=== PATIENT | male | born 1985 | race Two or more races ===

== ENCOUNTER 2024-06-20 13:15 | Emergency (ER) | payer MEDICAID, SELFPAY ==
--- NOTE | 2024-06-20 13:46 | PC.NURSE ---
patient refused medical care. provider and charge nurse aware, pt released to police custody
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
== END 2024-06-20 13:48 | disposition home or self-care (01) ==
PROVIDERS: Emergency Provider Emergency Medicine
DX: Z02.89 Encounter for other administrative examinations (principal)
CPT/HCPCS: 99281

== ENCOUNTER 2024-07-05 19:44 | Emergency (ER) | payer MEDICAID, SELFPAY ==
[2024-07-05 19:52] VITALS: BMI 25.8
[2024-07-05] MEDS: KETAMINE 50 MG/ML VIAL 10 ML 400 MG IM (19:55)
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
[2024-07-05 20:20] LABS: Base Excess -6 (-3-3); HCO3 20 mEq/L (20-26); Inspired O2, VO2 Liters 4 L/min; O2 Saturation 99 % (91-98); PCO2 38 mmHg (32.0-48.0); PO2 124 mmHg (83-108); pH, Arterial 7.32 (7.35-7.45)
[2024-07-05 20:22] VITALS: BP 161/99; PULSE 131; RESP 16; TEMP 36.9; O2SAT 98
[2024-07-05 20:23] LABS: Allen Test Not Performed; Puncture Site Site Not Noted
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
--- NOTE | 2024-07-05 20:31 | XR_ITS ---
Examination: AP chest single view Technique : AP portable supine chest single view Exam date and time: July 05, 2024 2005 hours INDICATIONS: Coughing today FINDINGS: Normal heart size. No pneumonia or pulmonary edema. Clavicles ribs appear intact, the film does not include all of the left lateral chest BB density unchanged position overlying dorsal spine compared with May 16, 2019 IMPRESSION: No pneumonia or pulmonary edema
[2024-07-05 20:48] VITALS: PULSE 105; PULSE 106; RESP 15; O2SAT 100
[2024-07-05] MEDS: SODIUM CHLORIDE 0.9% 1000 ML 1,000 ML 999 ML IV ×2 (20:50→22:02)
[2024-07-05 20:55] LABS: Lactate (Lactic Acid) 6.2 mMol/L (0.4-2.0)
[2024-07-05 20:58] LABS: Collection Type, Urine Catheter
[2024-07-05 21:02] LABS: Basophils # (Auto) 0.1 Thou/mm3 (0.0-0.2); Basophils % (Auto) 1 % (0-2.5); Eosinophils % (Auto) 0 % (0-10); Hematocrit 46.8 % (41.0-53.0); Hemoglobin 16.5 g/dL (13.5-16.0); Immature Granulocytes % (Auto) 1 % (0-0); Immature Granulocytes Auto 0.06 Thou/mm3 (0.00-0.00); Lymphocytes # (Auto) 0.8 Thou/mm3 (1.0-4.8); Lymphocytes % (Auto) 7 % (10-50); Mean Corpuscular HGB Conc 35.3 g/dl (31.0-37.0); Mean Corpuscular Hemoglobin 31.6 pg (25.0-35.0); Mean Corpuscular Volume 90 fL (80-100); Monocytes # (Auto) 0.7 Thou/mm3 (0.0-0.8); Monocytes % (Auto) 6 % (0-12); Neutrophils # (Auto) 10.4 Thou/mm3 (1.8-7.7); Neutrophils % (Auto) 86 % (37-80); Nucleated Red Blood Cell % 0 /100 WBC (0); Platelet Count 348 Thou/mm3 (140-440); RDW Standard Deviation 42.7 fL (35.1-43.9); Red Blood Count 5.22 Miln/mm3 (4.50-5.90)
[2024-07-05 21:15] LABS: Bacteria,Urine 4+; Bilirubin,Urine 1+ (Negative); Blood,Urine Negative (Negative); Clarity,Urine Turbid (Clear/Hazy); Color,Urine Yellow (Lt Yel-Yel); Glucose, Urine Negative (Negative); Hyaline Casts,Urine < 1 /hpf (0-1); Ketones,Urine 2+ (Negative); Leukocyte Esterase,Urine Negative (Negative); Nitrite,Urine Negative (Negative); Protein,Urine 3+ (Neg - Trace); RBC,Urine 33 /hpf (0-3); Specific Gravity,Urine 1.031 (1.001-1.035); Squamous Epithelial Cell,Urine 1 /hpf (0-5); WBC,Urine 27 /hpf (0-5)
[2024-07-05 21:23] LABS: Amphetamine/Methamp Scrn,U Positive (Negative); Barbiturate Screen,Urine Negative (Negative); Benzodiazepines Screen,Urine Positive (Negative); Benzoylecgonine Screen, Ur Negative (Negative); Fentanyl Screen,Urine Negative (Negative); Opiate Screen,Urine Negative (Negative); THC Screen,Urine Positive (Negative)
[2024-07-05 21:25] LABS: Acetaminophen < 2.0 mcg/mL (10.0-20.0); Alanine Aminotransferase 24 U/L (10-49); Albumin, Serum 4.6 gm/dL (3.5-5.0); Albumin/Globulin Ratio 1.4 (1.2-2.2); Alcohol, Blood Medical < 3.0 mg/dL (0-10.0); Alkaline Phosphatase 93 U/L (46-116); Anion Gap 18 (7-16); Aspartate Amino Transferase 36 U/L (0-34); BUN/Creatinine Ratio 12 Ratio (12-20); Bilirubin,Total 1.2 mg/dL (0.3-1.2); Blood Urea Nitrogen 22 mg/dL (9-23); Carbon Dioxide 18.7 mMol/L (20.0-31.0); Chloride 102 mMol/L (98-107); Creatinine (Component) 1.8 mg/dL (0.6-1.3); Estimated Creatinine Clearance 57.5 mL/min (>60); Globulin 3.3 gm/dL (2.3-3.5); Glucose 99 mg/dL (74-106); Lipase 27 U/L (12-53); Osmolality,Calculated 280 (275-295); Potassium 3.4 mMol/L (3.4-5.1); Salicylate < 3.0 mg/dL; Sodium 139 mMol/L (136-145); Total Protein 7.9 gm/dL (5.7-8.2); Troponin I < 0.020 ng/mL (0.0-0.045); eGFR 49 See Note
[2024-07-05 21:59] VITALS: BP 133/85; PULSE 88; RESP 16; TEMP 37.1; O2SAT 100
[2024-07-05 23:27] VITALS: BP 142/85; PULSE 94; RESP 17; TEMP 36.9; O2SAT 99
[2024-07-05 23:37] LABS: Lactate (Lactic Acid) 0.9 mMol/L (0.4-2.0)
[2024-07-05 23:53] LABS: Reflex Lactate? Y
[2024-07-06] MEDS: cefTRIAXone/D5w 1gm IV premix 50 ML IV (00:06)
[2024-07-06 00:37] VITALS: PULSE 89; RESP 16; TEMP 36.9; O2SAT 98
== END 2024-07-06 00:47 ==
PROVIDERS: Emergency Provider Emergency Medicine
DX: Z02.89 Encounter for other administrative examinations (principal); E86.0 Dehydration; N39.0 Urinary tract infection, site not specified; F12.10 Cannabis abuse, uncomplicated; F15.10 Other stimulant abuse, uncomplicated; T59.3X1A Toxic effect of lacrimogenic gas, accidental (unintentional), initial encounter
CPT/HCPCS: 36415; 36600; 71045; 80053; 80307; 80320; 80329; 81001; 82803; 83605; 83690; 84484; 85025; 85730; 96361; 96365; 96372; 99284; J0696; J7030; G0480